=== PATIENT | male | born 1970 | race Caucasian/White ===

== ENCOUNTER 2016-11-05 06:54 | Emergency (ER) | payer OTHER ==
[~2016-11-05] VITALS: Ht 190.5 cm; Wt 96.3 kg
[2016-11-05] MEDS ORDERED: ZANTAC150 MG PO (07:41)
[2016-11-05] MEDS ORDERED: PREDNISONE10 MG PO (07:41)
[2016-11-05] MEDS ORDERED: ZYRTEC10 M2 PO (07:41)
[2016-11-05 07:49] VITALS: BP 128/87
== END 2016-11-05 07:49 | disposition home or self-care (01) ==
LOC: EME 06:54
DX: L30.1 Dyshidrosis [pompholyx] (principal); T78.40XA Allergy, unspecified, initial encounter; J30.2 Other seasonal allergic rhinitis; F17.210 Nicotine dependence, cigarettes, uncomplicated
CPT/HCPCS: 99281; 99284; J7512

== ENCOUNTER 2016-11-22 19:25 | Emergency (ER) | payer OTHER ==
[~2016-11-22] VITALS: Ht 190.5 cm; Wt 97.8 kg
[~2016-11-22 19:25] MED LIST: PREDNISONE10 MG PO; ZANTAC150 MG PO; ZYRTEC10 M2 PO
[2016-11-22 19:28] VITALS: BP 137/104
[2016-11-22] MEDS ORDERED: PREDNISONE10 MG PO (20:35)
[2016-11-22] MEDS ORDERED: BENADRYL50 MG PO (20:36)
[2016-11-22] MEDS ORDERED: PEPCID20 MG PO (20:36)
== END 2016-11-22 21:40 | disposition home or self-care (01) ==
LOC: EME 19:25
DX: L25.9 Unspecified contact dermatitis, unspecified cause (principal); F17.200 Nicotine dependence, unspecified, uncomplicated
CPT/HCPCS: 99281; 99284; J1100

== ENCOUNTER 2016-12-14 10:12 | Emergency (ER) | payer OTHER ==
[~2016-12-14] VITALS: Ht 190.5 cm; Wt 98.5 kg
[~2016-12-14 10:12] MED LIST changes: +BENADRYL50 MG PO; +PEPCID20 MG PO
[2016-12-14] MEDS ORDERED: LEVOCETIRIZINE D5 MG PO (12:56)
[2016-12-14 13:36] VITALS: BP 134/95
== END 2016-12-14 13:38 | disposition home or self-care (01) ==
LOC: EME 10:12
DX: L30.1 Dyshidrosis [pompholyx] (principal); F17.200 Nicotine dependence, unspecified, uncomplicated
CPT/HCPCS: 99281; 99283

== ENCOUNTER 2017-08-21 00:08 | Emergency (ER) | payer OTHER ==
[~2017-08-21] VITALS: Ht 190.5 cm; Wt 103.6 kg
[~2017-08-21 00:08] MED LIST changes: +LEVOCETIRIZINE D5 MG PO
[2017-08-21 00:30] LABS: HEMATOCRIT 45.9 % (38.0-50.0); HEMOGLOBIN 15.5 G/DL (12.5-16.6); MCH 30.5 PG (29.0-34.0); MCHC 33.8 G/DL (30.0-36.0); MCV 90.4 FL (86-99); PLATELET COUNT 275 K/uL (156-360); RBC DIS.WIDTH-CV 13.1 % (11.8-14.6); RBC DIS.WIDTH-SD 42.8 % (39-53); RED BLOOD COUNT 5.08 M/uL (4.00-5.50); WHITE BLOOD COUNT 10.8 K/uL (4.1-10.2)
[2017-08-21 00:43] LABS: CHLORIDE 108 mEq/L (99-109); POTASSIUM 3.8 mEq/L (3.7-5.4); SODIUM 142 mEq/L (136-147)
[2017-08-21 00:45] LABS: GLUCOSE 85 mg/dL (70-99)
[2017-08-21 00:48] LABS: GFR ESTIMATE (CALCULATED) > 59 mL/min/ (58.99-99999)
[2017-08-21 00:49] LABS: UREA NITROGEN (BUN) 10 mg/dL (9-23)
[2017-08-21 00:51] LABS: TROP-I INTERPRETATION NEGATIVE; TROPONIN-I < 0.01 ng/mL (0.0-0.30)
[2017-08-21] MEDS ORDERED: ZITHROMAX Z-PA250 MG PO (02:24)
[2017-08-21 02:37] VITALS: BP 123/66
== END 2017-08-21 02:39 | disposition home or self-care (01) ==
LOC: EME 00:08
DX: J20.9 Acute bronchitis, unspecified (principal); F17.200 Nicotine dependence, unspecified, uncomplicated
CPT/HCPCS: 71046; 80048; 84484; 85027; 93005; 99281; 99284